=== PATIENT | female | born 1960 | race American Indian/Alaskan Native ===

== ENCOUNTER 2018-03-27 08:09 | Outpatient (CLI) | payer OTHER ==
--- NOTE | 2018-03-27 16:14 | Magnetic Resonance Report ---
BILATERAL BREAST MRI WITHOUT AND WITH CONTRAST: 03/27/18 08:09:00 CLINICAL: High risk for breast cancer. Strong family history of breast cancer. COMPARISON:03/09/18 screening mammogram. TECHNIQUE: Axial 1.0-mm T1 without, axial high resolution 2.0-mm T2 and axial 1.0-mm dynamic Vibrant high-resolution postcontrast T1 fat saturation sequences on a 1.5 Ellie magnet. The examination was performed with an 8 channel dedicated [place] breast coil. Post processing with CAD and subtraction was performed on an [employer] workstation. 20 cc of Multihance was injected without incident for the contrast portion of the exam. Consent was obtained prior to the administration of the contrast. FINDINGS: Right: Marked background parenchymal enhancement. An irregular enhancing mass at 9 o'clock 7.6 cm from the nipple measures 8.0 x 7.0 x 6.0 mm. It demonstrates heterogeneous enhancement with mixed kinetics, 114% peak enhancement, 58% type I persistent, 33% type II plateau and 9% type III washout waveforms. No other mass or suspicious enhancement. Multiple scattered small benign cysts. No suspicious right axillary or right internal mammary lymph nodes. Left: March background parenchymal enhancement. No suspicious mass or suspicious enhancement. An oval mass with a slightly lobular margin is located at 3 o'clock 0.8 cm from the nipple and it measures 6.8 x 5.4 x 4.8 mm. It demonstrates heterogeneous enhancement with mixed kinetics, 145% peak enhancement, 72% type I persistent, 28% type II plateau and 0% type III washout. No other mass or suspicious enhancement. Scattered small benign cysts. The largest measures 7 mm. No suspicious left axillary or left internal mammary lymph nodes. IMPRESSION: 1. A suspicious 8mm right breast mass at 9 o'clock 7.6 cm from the nipple. Recommend targeted right breast ultrasound and needle biopsy with either ultrasound guidance or MRI guidance. 2. Bilateral fibrocystic change with numerous small cysts. RIGHT BI-RADS 4 -- Suspicious LEFT BI-RADS 2 -- Benign
== END 2018-03-27 08:10 | disposition home or self-care (01) ==
LOC: SPVIMAG 08:09
PROVIDERS: ATTEND Surgery
DX: N60.12 Diffuse cystic mastopathy of left breast (principal); N60.11 Diffuse cystic mastopathy of right breast; E78.5 Hyperlipidemia, unspecified; I10 Essential (primary) hypertension; E78.00 Pure hypercholesterolemia, unspecified; Z80.3 Family history of malignant neoplasm of breast
CPT/HCPCS: A9577; C8908; 77059

== ENCOUNTER 2018-04-19 10:30 | Outpatient (CLI) | payer OTHER ==
--- NOTE | 2018-04-19 11:32 | Ultrasound Report ---
TARGETED RIGHT BREAST ULTRASOUND: 04/19/18 10:30:00 CLINICAL: A suspicious lesion by MRI at 9 o'clock 8 cm from the nipple. COMPARISON: 03/27/18 MRI FINDINGS: Ultrasound of the right breast demonstrated an irregular complex lesion at 9 o'clock 8 cm from the nipple which appears to correlate with MRI finding. It has both cystic and solid components and measures approximately 9 x 4 x 4 mm. No shadowing. IMPRESSION: A 9 x 4 x 4 mm complex lesion at 9 o'clock 8 cm from the nipple. It appears to correlate with MRI finding. Recommend ultrasound-guided needle biopsy. BI-RADS 4A--Mildly Suspicious I discussed the findings and the recommendation for ultrasound guided needle core biopsy with the patient at the time of the examination.
== END 2018-04-19 10:31 | disposition home or self-care (01) ==
LOC: SPVWC 10:30
PROVIDERS: ATTEND Surgery
DX: R92.8 Other abnormal and inconclusive findings on diagnostic imaging of breast (principal); E78.5 Hyperlipidemia, unspecified; I10 Essential (primary) hypertension

== ENCOUNTER 2018-08-28 09:38 | Outpatient (CLI) | payer OTHER ==
--- NOTE | 2018-08-28 15:20 | Magnetic Resonance Report ---
BILATERAL BREAST MRI WITHOUT AND WITH CONTRAST: 08/28/18 09:38:00 CLINICAL: Followup after ultrasound-guided biopsy of a right breast lesion at 9 o'clock 8 cm from the nipple on 05/22/18. Pathology result: Benign breast tissue with proliferative fibrocystic changes including sclerosing adenosis. COMPARISON:03/27/18 MRI and 04/19/18 right breast ultrasound. TECHNIQUE: Axial 1.0-mm T1 without, axial high resolution 2.0-mm T2 and axial 1.0-mm dynamic Vibrant high-resolution postcontrast T1 fat saturation sequences on a 1.5 Ellie magnet. The examination was performed with an 8 channel dedicated [place] breast coil. Post processing with CAD and subtraction was performed on an [employer] workstation. 19.0 cc of Multihance was injected without incident for the contrast portion of the exam. Consent was obtained prior to the administration of the contrast. FINDINGS: Right: Moderate background parenchymal enhancement with a significant decrease in overall enhancement compared to the last exam. Lesion 1 is an irregular round enhancing mass at 9 o'clock 7.3 cm from the nipple measuring 9.5 x 7.9 x 6.7 mm. It demonstrates heterogeneous enhancement with mixed kinetics, 157% peak enhancement, 34% type I persistent, 37% type II plateau and 29% type III washout. This lesion correlates with the previously identified lesion at 9 o'clock 8 cm from the nipple and it measured 8.0 x 7.0 x 6.0 mm on the last exam. A biopsy clip from the ultrasound biopsy is not confidently identified near the mass or elsewhere in the breast. No other mass or suspicious enhancement of the right breast. No suspicious lymph nodes. Left: Moderate background parenchymal enhancement with a significant decrease in overall enhancement compared to the last exam. Lesion 2 is a stable oval lower outer mass 6 cm from the nipple measuring 7.3 x 5.1 x 4.1 mm. In demonstrates heterogeneous enhancement with mixed kinetics. It has a benign pattern of enhancement with 79% type I persistent and 21% type II plateau waveforms. No other mass or suspicious enhancement of the left breast. No suspicious lymph nodes. IMPRESSION: 1. A slightly larger 9.5 mm right breast mass at 9 o'clock approximately 7 cm from the nipple. The assumption has been that this is the same lesion identified and biopsied by ultrasound. However, I am not 100% confident of this correlation since a concordant biopsy clip is not identified on this exam. Since the mass has enlarged, recommend MRI guided needle biopsy to exclude malignancy. 2. A stable benign 7 mm left breast mass. RIGHT BI-RADS 4 -- Suspicious LEFT BI-RADS 2 -- Benign
== END 2018-08-28 09:39 | disposition home or self-care (01) ==
LOC: SPVIMAG 09:38
PROVIDERS: ATTEND Surgery
DX: N63.13 Unspecified lump in the right breast, lower outer quadrant (principal); I10 Essential (primary) hypertension; E78.5 Hyperlipidemia, unspecified; Z80.3 Family history of malignant neoplasm of breast
CPT/HCPCS: A9577; C8908; 77049

== ENCOUNTER 2019-03-20 09:12 | Outpatient (CLI) | payer OTHER ==
--- NOTE | 2019-03-20 10:06 | Mammography Report ---
DIGITAL SCREENING MAMMOGRAM WITH CAD, 03/20/2019 INDICATION: Routine screening mammography. As post right benign stereotactic biopsy of calcifications 05/22/2018 TECHNIQUE: Digital bilateral 2D mammography was obtained in the craniocaudal and mediolateral obliq ue projections. This examination was interpreted with the benefit of Computer-Aided Detection analysi s. COMPARISON: 03/09/2018 FINDINGS: Breast Density: The breasts are heterogeneously dense, which may obscure small masses. There is no evidence of dominant mass, suspicious calcifications or architectural distortion in eithe r breast. A right upper outer biopsy clip. Stable scattered bilateral amorphous calcifications with b enign morphology. IMPRESSION: Follow up recommendation: Routine yearly BI-RADS Category 2: Benign. A "normal" or negative report should not discourage follow up or biopsy of a clinically significant f inding. A written summary of these findings will be mailed to the patient. The patient will be entered into a mammography reporting system which will generate a reminder letter for the patient's next appointmen t at the appropriate interval. The [employer] recommends yearly mammograms starting at age 40 and continuing as l richard as a woman is in good health. Breast MRI is recommended for women with an approximate 20-25% or greater lifetime risk of breast cancer, including women with a strong family history of breast or ova najma cancer or who have been treated for Hodgkin's disease. Signer Name: Earnest Ramos MD Signed: 03/20/2019 10:02 AM Workstation Name: [id number]
== END 2019-03-20 09:13 | disposition home or self-care (01) ==
LOC: SPVWC 09:12
PROVIDERS: ATTEND Surgery
DX: Z12.31 Encounter for screening mammogram for malignant neoplasm of breast (principal); I10 Essential (primary) hypertension; E78.5 Hyperlipidemia, unspecified; E78.00 Pure hypercholesterolemia, unspecified
CPT/HCPCS: 77067

== ENCOUNTER 2019-05-15 08:38 | Outpatient (CLI) | payer OTHER ==
--- NOTE | 2019-05-15 11:25 | Mammography Report ---
RIGHT DIGITAL DIAGNOSTIC MAMMOGRAM CLINICAL: For clip placement after MRI guided needle biopsy. COMPARISON: 05/22/2018 FINDINGS: A biopsy clip is identified at the site of MRI biopsy. IMPRESSION: Concordant clip deployment. Signer Name: Earnest Ramos MD Signed: 05/15/2019 11:20 AM Workstation Name: [id number]
--- NOTE | 2019-05-15 13:15 | Magnetic Resonance Report ---
RIGHT MRI GUIDED BREAST BIOPSY INDICATION: High risk for breast cancer and an enlarging enhancing mass. COMPARISONS: 04/02/2019 TECHNIQUE: Axial 1.0 mm T1 without and axial 1.0 mm dynamic vibrant high-resolution postcontrast T1 f at saturation sequences on a 1.5 Ellie magnet. 19.0 cc of MultiHance was injected without incident fo r the contrast portion of the exam. Consent was obtained prior to the administration of the contrast. Lesion targeting was performed with [employer] software. FINDINGS: A timeout was called and the skin was marked. A localization scan was performed and an 11 mm enhancin g mass was identified at 9:00 correlating with the suspicious lesion on recent MRI. The lesion was chavez ccessfully targeted. Using 1% lidocaine for superficial anesthesia and 2% lidocaine with epinephrine for deep anesthesia, a 9 gauge vacuum-assisted biopsy was performed. Satisfactory targeting and sampl ing was confirmed with imaging. Multiple cores were obtained and placed in formalin. The patient tole rated the procedure well and there were no apparent complications. Hemostasis was achieved with minim al effort. Steri-Strips and a sterile dressing were applied. A post procedure mammogram demonstrated concordant clip deployment. The patient left the department in good condition and was given instructi ons for wound care and follow-up. IMPRESSION: Successful and uncomplicated MRI guided needle biopsy right breast. Pathology pending. BI-RADS Category 4: Suspicious Signer Name: Earnest Ramos MD Signed: 05/15/2019 1:11 PM Workstation Name: [id number]
[2019-07-02] MEDS ORDERED: LIDOCAINE (1%) 10 MG/1 ML VIAL 20 ML MDV INFILTRATI ONE (07:57)
== END 2019-05-15 08:39 | disposition home or self-care (01) ==
LOC: SPVIMAG 08:38
PROVIDERS: ATTEND Surgery
DX: N60.81 Other benign mammary dysplasias of right breast (principal); R92.8 Other abnormal and inconclusive findings on diagnostic imaging of breast; Z80.3 Family history of malignant neoplasm of breast; I10 Essential (primary) hypertension; Z72.0 Tobacco use
CPT/HCPCS: 19085; 77065; 88305; A4648; A9577; 88341; 88342

== ENCOUNTER 2019-07-02 06:51 | Day surgery (SDC) | payer OTHER ==
[2019-07-02] MEDS ORDERED: LIDOCAINE (1%) 10 MG/1 ML VIAL 20 ML MDV ONE (07:42)
[2019-07-02] MEDS ORDERED: HYDROmorphone 1 MG/1 ML INJ IV PRN (07:44)
[2019-07-02] MEDS ORDERED: ONDANSETRON 4 MG/2 ML INJ IV PRN (07:44)
[2019-07-02] MEDS ORDERED: LACTATED RINGERS 1,000 ML IV SCH (08:00)
--- NOTE | 2019-07-02 08:57 | Anesthesia Day of Surgery ---
Anesthesia Day of Surgery - Day of Surgery Patient Examined: Yes Patient H&P Reviewed: Yes Patient is NPO: Yes
--- NOTE | 2019-07-02 08:59 | Anesthesia Consultation ---
Anesthesia Consult and Med Hx Date of service: 07/02/19 - Airway Anesthetic Teeth Evaluation: Good ROM Head & Neck: Adequate Mental/Hyoid Distance: Adequate Mallampati Class: Class II Intubation Access Assessment: Good - Pre-Operative Health Status ASA Pre-Surgery Classification: ASA2 Proposed Anesthetic Plan: General - Pulmonary Hx Smoking: Yes (Former) - Cardiovascular System Hx Hypertension: Yes (since 1999. ETT 3 years ago ok per pt) Hx Heart Attack/AMI: No (Pt states she can climb two flight of stairs) - Central Nervous System Hx Psychiatric Problems: No - Endocrine Hx Renal Disease: Yes (CRI) - Other Systems Hx Cancer: No
[2019-07-02] MEDS ORDERED: MAGNESIUM OXIDE 400 MG TAB PO NR (09:00)
[2019-07-02] MEDS ORDERED: ACETAMINOPHEN 500 MG TAB PO NR (09:00)
[2019-07-02] MEDS ORDERED: GABAPENTIN 300 MG CAP PO NR (09:00)
[2019-07-02] MEDS ORDERED: MIDAZOLAM 2 MG/2 ML INJ IV NR (09:00)
[2019-07-02] MEDS ORDERED: CELECOXIB 200 MG CAP PO NR (09:00)
[2019-07-02] MEDS ORDERED: fentaNYL 100 MCG/2 ML INJ IV NR (09:00)
--- NOTE | 2019-07-02 09:07 | Mammography Report ---
NEEDLE LOCALIZATION AND HOOKWIRE PLACEMENT RIGHT BREAST INDICATION: RT BREAST MASS. Status post MRI guided needle biopsy 05/15/2019 with pathologic diagnosis of papilloma . COMPARISON: 05/15/2019 mammogram FINDINGS: Using sterile technique, mammographic guidance and 1% lidocaine for skin anesthesia, a 5.0 cm Acevedo 2 hookwire was placed from a lateral approach to localize the biopsy clip that was placed on 05/15/20 19. Satisfactory positioning was confirmed with orthogonal views. The hookwire was deployed and the n eedle was removed. A sterile dressing was applied. The patient tolerated the procedure well and there were no apparent complications. She was taken imme diately to the operative suite. IMPRESSION: 1. Uncomplicated needle localization and hookwire placement right breast.. Signer Name: Earnest Ramos MD Signed: 07/02/2019 9:03 AM Workstation Name: [id number]
[2019-07-02] MEDS ORDERED: BUPIVACAINE-EPINEPHRINE/PF 0.5%-1:200,000 (10 ML) VIAL INFILTRATI ONE ×2 (09:28→09:29)
[2019-07-02] MEDS ORDERED: ceFAZolin/STERILE WATER 2 GM/20 ML SYRINGE IV NR (10:00)
[2019-07-02] MEDS ORDERED: LIDOCAINE MPF (2%) 20 MG/1 ML VIAL 5 ML ONE (10:11)
[2019-07-02] MEDS ORDERED: PROPOFOL 200 MG/20 ML VIAL IV ONE (10:12)
[2019-07-02] MEDS ORDERED: fentaNYL 100 MCG/2 ML INJ ONE (10:12)
[2019-07-02] MEDS ORDERED: ePHEDrine SULFATE 50 MG/1 ML INJ ONE (11:44)
[2019-07-02] MEDS ORDERED: ONDANSETRON 4 MG/2 ML INJ ONE (13:16)
--- NOTE | 2019-07-02 13:18 | Operative Report ---
Operative Report Operative Report: Operative Report: Date of Service: July 02, 2019 Preoperative diagnosis: Right breast papillioma of the upper outer quadrant Postoperative diagnosis: Same Procedure: Right breast papilloma excisional biopsy of the upper outer quadrant Surgeon: Margarita Early M.D. Senior Fire Protection Engineer: Mariza Barbour M.D. Anesthesia: General Findings: Right breast papilloma excisional biopsy; radiograph specimen with clips and wire present Complications: None Drains: None Estimated blood loss: Minimal Disposition: PACU in good condition Indication for operative procedure: This is a 58-year-old lady high risk for breast cancer given family history with recent abnormal right breast MRI. Right breast MRI biopsy of the upper outer quadrant with findings of a papilloma. Recommendations are for excisional biopsy to rule out malignancy given benign high risk breast cancer lesion, patient also high risk for breast cancer given family history. Patient wished to proceed with the above procedure. The patient was procedure in detail: Radiology placed wire to localize area of concern at location of clip. Anesthesia placed right pectoral block. The patient was taken to the operating room and was laid supine. General anesthesia was administered. The right breast was prepped and draped in the normal sterile operative fashion. Timeout was performed. The wire was identified. A lateral breast incision was made around the 9:00 position with a 15 blade knife with dissection taken down to the subcutaneous tissues. First began raising of the lateral flap with removal of wire from the skin and dissection carried down posteriorly, followed by raising of the superior, medial, and inferior flaps being raised and taken down posteriorly. The wire was not encountered. The area of concern was then removed with the aid of the Bovie cautery. Area of probable fat necrosis-like breast tissue was noted. The specimen was sent to radiology with radiograph specimen with clips and wire present and then sent to pathology. Hemostasis was obtained using the Bovie cautery. The breast cavity was i rrigated and suctioned. The deep breast tissues were approximated and closed using interrupted 3-0 Vicryl and skin brought together and closed using a running 4-0 Monocryl followed by dermabond. She tolerated surgery very well and was awakened from anesthesia without any complication and transported to PACU in good condition.
--- NOTE | 2019-07-02 13:22 | Short Stay Summary ---
Short Stay Documentation Date of service: 07/02/19 - History H&P: obtained from office - Allergies and Medications Current Medications: Allergies No Known Allergies Allergy (Unverified 06/29/19 10:36) Home Medications Medication Instructions Recorded Confirmed Last Taken Type Furosemide [Lasix TAB] 20 mg PO QDAY 08/01/15 07/02/19 06/29/19 09:00 History Simvastatin (Nf) [Zocor TAB] 20 mg PO QHS 08/01/15 07/02/19 06/29/19 19:00 History lisinopriL [Zestril TAB] 20 mg PO QDAY 08/01/15 07/02/19 06/29/19 09:00 History HYDROcodone/APAP 5-325 [[place] 1 each PO Q6HR PRN #12 tablet 07/02/19 Unknown Rx 5/325] Active Medications Cefazolin Sodium (Ancef/Sterile Water 2 Gm/20 Ml) 2 gm IV PREOP NR Stop: 07/02/19 16:00 Celecoxib (Celebrex) 200 mg PO PREOP NR Stop: 07/02/19 16:00 Last Admin: 07/02/19 09:10 Dose: 200 mg Documented by: Gabapentin (Gabapentin) 300 mg PO PREOP NR Stop: 07/02/19 16:00 Last Admin: 07/02/19 09:10 Dose: 300 mg Documented by: Hydromorphone HCl (Dilaudid) 0.5 mg IV Q10MIN PRN PRN Reason: Pain , Severe (7-10) Stop: 07/02/19 23:00 Lactated Ringer's (Lactated Ringers) 1,000 mls @ 125 mls/hr IV DIRECT MARY Last Admin: 07/02/19 09:00 Dose: 125 mls/hr Documented by: Magnesium Oxide (Mag-Ox) 400 mg PO ONCE NR Stop: 07/02/19 16:00 Last Admin: 07/02/19 09:10 Dose: 400 mg Documented by: Midazolam HCl (Versed) 2 mg IV PREOP NR Stop: 07/02/19 23:59 Last Admin: 07/02/19 09:29 Dose: 2 mg Documented by: Ondansetron HCl (Zofran) 4 mg IV ONCE PRN PRN Reason: Nausea And Vomiting Stop: 07/02/19 16:00 - Brief post op/procedure progress note Date of procedure: 07/02/19 Pre-op diagnosis: Right breast papilloma Post-op diagnosis: same Procedure: Right needle localization papilloma excisional biopsy Anesthesia: GETA Findings: Wire and clips present Surgeon: CHELLE GRANT Personnel Adviser: PRIYANKA PALMA Estimated blood loss: minimal Pathology: list (right breast papilloma) Specimen disposition: to lab Condition: stable - Disposition Condition at discharge: Good Disposition: DC- TO HOME OR SELFCARE Short Stay Discharge Plan Activity: other (no heavy lifting) Diet: regular Wound: keep clean and dry (may shower in 48 hours) Follow up with: DEVEN MONTGOMERY MD [Primary Care Provider] - 7 Days CHELLE GRANT MD [Staff Physician] - 7 Days Prescriptions: HYDROcodone/APAP 5-325 [[place] 5/325] 1 each PO Q6HR PRN #12 tablet PRN Reason: Pain
[2019-07-02] MEDS ORDERED: SODIUM CHLORIDE 0.9% IRR 1,500 ML BOTTLE IR ONE (13:24)
--- NOTE | 2019-07-02 13:36 | XRay Report ---
SPECIMEN RADIOGRAPH RIGHT BREAST INDICATION: Post surgical excision. COMPARISON: 05/15/2019 mammogram FINDINGS: 2 biopsy clips and a hookwire are identified within the specimen. IMPRESSION: 1. Excision of 2 lesions. Signer Name: Earnest Ramos MD Signed: 07/02/2019 1:31 PM Workstation Name: [id number]
[2019-07-02 14:09] VITALS: BP 125/76
--- NOTE | 2019-07-02 22:37 | Post Anesthesia Evaluation ---
- Post Anesthesia Evaluation Patient Participated: Yes Airway Patent: Yes Stable Respiratory Function: Yes Nausea/Vomiting: No Temp > 96.8F: Yes Pain Manageable: Yes Adequeate Hydration: Yes Anesthesia Complications: No Block Receding Appropriately: Yes Patient on Ventilator: No
== END 2019-07-02 06:52 | disposition home or self-care (01) ==
LOC: OR 06:51
PROVIDERS: ATTEND Surgery
DX: D24.1 Benign neoplasm of right breast (principal); R92.0 Mammographic microcalcification found on diagnostic imaging of breast; I10 Essential (primary) hypertension; E78.5 Hyperlipidemia, unspecified; Z79.899 Other long term (current) drug therapy; Z87.891 Personal history of nicotine dependence; Z98.41 Cataract extraction status, right eye; Z98.42 Cataract extraction status, left eye; Z90.710 Acquired absence of both cervix and uterus; Z98.890 Other specified postprocedural states
CPT/HCPCS: 19125; 19281; 76098; 88307; J0690; J2250; J2405; J2704; J3010; J7120